=== PATIENT | female | born 1975 | race Caucasian/White ===

== ENCOUNTER 2017-07-10 10:01 | Day surgery (SDC) | payer BC ==
[2017-07-10] VITALS (10 sets, daily range): BP systolic 97–105; BP diastolic 46–62; PULSE 58–86; TEMP 97.7–98
[~2017-07-10] VITALS: Ht 170.2 cm; Wt 73.0 kg
[~2017-07-10 10:01] MED LIST: ALLEGRA-D TABLE1 TAB; PRENATAL VITAMI1 TAB PO
[2017-07-10] MEDS ORDERED: MULTIPLE VITAMI1 CAP PO (11:04)
[2017-07-10] MEDS ORDERED: NATURAL MAGNES200 MG PO (11:04)
[2017-07-10] MEDS ORDERED: ROXICODONE 55 MG/TAB PO (15:17)
[2017-07-10] MEDS ORDERED: TYLENOL 500MG500 MG PO (15:19)
[2017-07-11 01:56] VITALS: BP 98/46; PULSE 75; TEMP 98.4
[2017-07-11 04:49] VITALS: BP 102/58; PULSE 92; TEMP 98.5
[2017-07-11 10:21] VITALS: BP 110/59; PULSE 69; TEMP 98.2
== END 2017-07-11 14:10 | disposition home or self-care (01) ==
LOC: SDCO 10:01 → SURG 17:55 → SDCO 07-11 14:10
DX: K42.9 Umbilical hernia without obstruction or gangrene (principal); K43.9 Ventral hernia without obstruction or gangrene; M62.08 Separation of muscle (nontraumatic), other site
CPT/HCPCS: OP; C1713; C1781; J0690; J1100; J1885; J2270; J2405; J2704; J7042; J7120